=== PATIENT | male | born 1975 | race Caucasian/White ===

== ENCOUNTER → 2018-10-09 | Emergency (ER) | payer OTHER ==
[~2018-10-09] VITALS: Ht 165.1 cm; Wt 81.2 kg
[~2018-10-09] MED LIST: DICLOFENAC SODI25 MG; NORFLEX100MG
== END | disposition left against medical advice (07) ==
LOC: ER 23:13
DX: Z53.20 Procedure and treatment not carried out because of patient's decision for unspecified reasons (principal)